=== PATIENT | male | born 1945 | race Caucasian/White ===

== ENCOUNTER 2018-05-24 17:09 | Emergency (ER) | payer MEDICARE ==
[~2018-05-24] VITALS: Ht 170.2 cm; Wt 97.7 kg
[~2018-05-24 17:09] MED LIST: CELEBREX200 MG OR; COZAAR25 MG OR; EQ ASA CHLD81 MG PO; FLOVENT HFA220 MCG IN; IBUPROFEN600 MG OR; LANOXIN0.25 MG OR; LASIX40 MG OR; LEVOTHROID100 MCG OR; LIPITOR20 MG PO; NEXIUM40 M1 OR; PLAVIX75 MG OR; SYNTHROID75 MCG OR; TENORMIN OR; ULTRAM50 M1 OR; XANAX0.5 MG OR; XOPENEX HFA IN
[2018-05-24] MEDS ORDERED: LEVOTHYROXIN100 MCG PO (17:25)
[2018-05-24] MEDS ORDERED: TRAMADOL HYDROC50 MG PO (17:51)
[2018-05-24] MEDS ORDERED: MEDDOSEPAK PO (17:51)
[2018-05-24 17:55] VITALS: BP 166/84
== END 2018-05-24 17:55 | disposition home or self-care (01) ==
LOC: ED 17:09
DX: G89.29 Other chronic pain (principal); M54.5 Low back pain; I10 Essential (primary) hypertension; I25.10 Atherosclerotic heart disease of native coronary artery without angina pectoris; E03.9 Hypothyroidism, unspecified

== ENCOUNTER 2019-06-03 11:47 | Emergency (ER) | payer MEDICARE ==
[~2019-06-03] VITALS: Ht 170.2 cm; Wt 88.0 kg
[~2019-06-03 11:47] MED LIST changes: +LEVOTHYROXIN100 MCG PO; +MEDDOSEPAK PO; +TRAMADOL HYDROC50 MG PO
[2019-06-03] MEDS ORDERED: ERYTHROMYCIN O3.5 GM OD (13:11)
[2019-06-03 13:24] VITALS: BP 162/86
== END 2019-06-03 13:26 | disposition home or self-care (01) ==
LOC: ED 11:47
DX: T15.01XA Foreign body in cornea, right eye, initial encounter (principal); I10 Essential (primary) hypertension; I25.10 Atherosclerotic heart disease of native coronary artery without angina pectoris; E03.9 Hypothyroidism, unspecified; H91.90 Unspecified hearing loss, unspecified ear; X58.XXXA Exposure to other specified factors, initial encounter

== ENCOUNTER 2019-12-14 07:48 | Emergency (ER) | payer MEDICARE ==
[~2019-12-14] VITALS: Ht 170.2 cm; Wt 80.0 kg
[~2019-12-14 07:48] MED LIST changes: +ERYTHROMYCIN O3.5 GM OD
[2019-12-14] MEDS ORDERED: MEDDOSEPAK PO (08:49)
[2019-12-14] MEDS ORDERED: FLEXERIL PO (08:49)
[2019-12-14] MEDS ORDERED: ULTRAM50 M1 PO (08:49)
[2019-12-14 08:51] VITALS: BP 139/75
== END 2019-12-14 09:00 | disposition home or self-care (01) ==
LOC: ED 07:48
DX: M54.41 Lumbago with sciatica, right side (principal); I10 Essential (primary) hypertension; E03.9 Hypothyroidism, unspecified; I25.2 Old myocardial infarction; Z95.1 Presence of aortocoronary bypass graft

== ENCOUNTER 2020-02-26 19:40 | Emergency (ER) | payer MEDICARE ==
[~2020-02-26] VITALS: Ht 167.6 cm; Wt 101.8 kg
[~2020-02-26 19:40] MED LIST changes: +FLEXERIL PO; +ULTRAM50 M1 PO
[2020-02-26] MEDS ORDERED: TORADOL PO (20:33)
[2020-02-26] MEDS ORDERED: ORPHENADRINE100 MG PO (20:33)
[2020-02-26 20:40] VITALS: BP 175/72
== END 2020-02-26 20:48 | disposition home or self-care (01) ==
LOC: ED 19:40
DX: M54.9 Dorsalgia, unspecified (principal); G89.29 Other chronic pain; I10 Essential (primary) hypertension; I25.10 Atherosclerotic heart disease of native coronary artery without angina pectoris; E03.9 Hypothyroidism, unspecified; Z95.1 Presence of aortocoronary bypass graft